=== PATIENT | male | born 1955 | race African-American/Black ===

== ENCOUNTER 2019-06-26 17:21 | Emergency (ER) | payer SELFPAY ==
[~2019-06-26 17:21] MED LIST: Calcium Chloride 1 GM/10 ML Abboject SYRINGE ONE; EPINEPHrine 1 MG/10 ML Abboject SYRINGE ONE; Sodium Bicarb 50 MEQ/50 ML Abboject 8.4% SYRINGE ONE
[2019-06-30 09:30] LABS: Base Excess-Venous 29.1 mmol/L (-2.0 to 3.0); Bicarbonate (HCO3v) 64.7 mmol/L (22.0-28.0); CO2 Tension (PvCO2) 194.5 mmHg (40.0-50.0); Hemoglobin - Calc 10.2 g/dL (14.0-18.0); vO2 Saturation-calc 9.5 % (60.0-85.0)
[2019-06-30 09:31] LABS: Chloride 112 mmol/L (98-107); Potassium 4.5 mmol/L (3.5-5.1); Sodium 178 mmol/L (138-145)
[2019-06-30 09:32] LABS: Glucose 299 mg/dL (80-115); Lactate 7.46 mmol/L (0.50-2.20)
[2019-06-30 09:37] LABS: Calcium, Ionized Greater than 4.00 mmol/L (See Comments:); T. Carbon Dioxide Greater than 50.0 mmol/L (22.0-28.0)
== END 2019-06-26 17:34 ==
LOC: ERS 17:21
DX: I46.9 Cardiac arrest, cause unspecified (principal)
CPT/HCPCS: 36556; 36680; 82330; 82435; 82565; 82803; 82947; 83605; 84132; 84295; 85014; 92950; 96374; 96375; J0171